=== PATIENT | male | born 1965 | race Caucasian/White ===

== ENCOUNTER → 2017-06-27 | Outpatient (CLI) | payer BC ==
--- NOTE | 2017-06-27 17:29 | MRI ---
EXAM DESCRIPTION: Lumbar Spine w/o Contrast: MRI CLINICAL HISTORY: RADICULOPATHY LUMBAR REGION COMPARISON: LUMBAR TECHNIQUE: Multiplanar, multiple standard sequences, non contrast MRI, lumbar spine. FINDINGS: L5-S1: Large disc herniation to the right of midline approximately 15 cm in length with inferior extrusion. Disc is impinging the right ventral thecal sac and displacing the right S1 nerve in the lateral recess. Degenerative mild to moderate canal stenosis. No impingement of the contralateral S1 nerve root. Minimal disc bulge into the foramina bilaterally abutting the exiting L5 nerve roots as well as no bony foraminal chapa. Modic type II endplate reactive changes on the right. Posterior elements unremarkable. L4-5: Disc desiccation with no significant bulging. Annular fissure in the midline. Bilateral mild posterior flavum ligament hypertrophy. AP canal diameter 11 mm. Bilateral foramina are patent. Remaining discs with normal signal and no significant bulging. Disc spaces are maintained with no infiltrate changes. Canal and foramina are patent at these levels with posterior flavum ligament hypertrophy at L3-4. Conus terminates at T12-L1. Anatomic alignment is unremarkable. Paravertebral soft tissues negative. Normal marrow signal in the remaining vertebral bodies and the posterior elements. Vertebral bodies are not compressed at any level. IMPRESSION: 1. Large L5-S1 disc extrusion to the right of midline and inferior impinging the thecal sac in the descending right S1 nerve. Canal stenosis. Significant foraminal narrowing bilaterally by disc bulging into the foramina touching the bilateral L5 nerves. 2. L4-5 disc desiccation with posterior midline annular fissure with no protrusion or herniation. Electronically signed by: Fidel Cameron MD 06/27/2017 5:28 PM CDT
== END ==
LOC: MRI 08:10
PROVIDERS: ATTEND Family Medicine
DX: M51.16 Intervertebral disc disorders with radiculopathy, lumbar region (principal)